=== PATIENT | male | born 1945 | race Caucasian/White ===

== ENCOUNTER 2016-06-25 10:35 | Day surgery (SDC) | payer MEDICARE ==
--- NOTE | 2016-06-24 12:17 | PCM.ANEPRE ---
Anesthesia Pre-Op Review Reason for Review: pre op EKG tachycardia- persistent through pre appts Anesthesia Recommendations: Proceed with Procedure Additional Comments 71 yo active male for cysto/lithalopaxy with no apparent cardiac hx other than tachycardia (90-120) noted on office visits. Pt hasn't followed up with PCP. Walked 4mi/day before his urinary symptoms. Phone conversation between patient and pre op RN reassuring; patient active with no symptoms. Ok to proceed with this particular low acuity case with usual DOS evaluation. Chart Reviewed by: Rufino Lazo MD, MD Jun 24, 2016 12:17
[~2016-06-25] VITALS: Ht 185.4 cm; Wt 39.0 kg
[2016-06-25] VITALS (8 sets, daily range): BP systolic 123–157; BP diastolic 77–95; PULSE 88–110; RESP 12–18; O2SAT 96–100
[~2016-06-25 10:35] MED LIST: ASPI-973 PO; Lactated Ringer's 1,000 ML IV SCH; Levofloxacin 500 mg/100 mL D5W IV SCH; TAMS0.4C98 PO
[2016-06-25] MEDS ORDERED: Phenylephrine/NS-PF 100 mCg/mL 5 mL Syringe IVPUSH ONE (10:36)
[2016-06-25] MEDS ORDERED: Ondansetron 2 mg/mL 2 mL Inj ONE (10:36)
[2016-06-25] MEDS ORDERED: Lidocaine PF 1% 30 mL Inj ONE (10:36)
[2016-06-25] MEDS ORDERED: Labetalol 5 mg/mL 20 mL Inj ONE (10:36)
[2016-06-25] MEDS ORDERED: MeTOProlol 1 mg/mL 5 mL Inj ONE (10:36)
[2016-06-25] MEDS ORDERED: fentaNYL-PF 50 mCg/mL 2 mL Inj ONE (10:36)
[2016-06-25] MEDS ORDERED: Esmolol 10,000 mCg/mL 10 mL Inj ONE (10:36)
[2016-06-25] MEDS ORDERED: Propofol 10,000 mCg/mL 20 mL Inj ONE (10:36)
[2016-06-25] MEDS ORDERED: HYDROmorphone 1 mg/mL Inj IVPUSH PRN (13:30)
[2016-06-25] MEDS ORDERED: Atropine 0.4 mg/mL Inj IVPUSH PRN (13:30)
[2016-06-25] MEDS ORDERED: EPHEDrine Sulfate 50 mg/mL Inj IVPUSH PRN (13:30)
[2016-06-25] MEDS ORDERED: Ondansetron 2 mg/mL 2 mL Inj IVPUSH PRN (13:30)
[2016-06-25] MEDS ORDERED: fentaNYL-PF 50 mCg/mL 2 mL Inj IVPUSH PRN (13:30)
[2016-06-25] MEDS ORDERED: Dexamethasone 4 mg/mL Inj IVPUSH PRN (13:30)
[2016-06-25] MEDS ORDERED: Lactated Ringer's 1,000 ML IV SCH (13:30)
[2016-06-25] MEDS ORDERED: MetoCLOpramide 5 mg/mL 2 mL Inj IVPUSH PRN (13:30)
[2016-06-25] MEDS ORDERED: Labetalol 5 mg/mL 4 mL Inj IV PRN (13:30)
[2016-06-25] MEDS ORDERED: hydrALAZINE 20 mg/mL Inj IVPUSH PRN (13:30)
[2016-06-25] MEDS ORDERED: Lactated Ringer's 500 ML IV PRN (13:30)
[2016-06-25] MEDS ORDERED: Phenylephrine 10,000 mCg/mL Inj IVPUSH PRN (13:30)
--- NOTE | 2016-06-25 13:30 | PCM.HPANE ---
Patient Data Date of Service: Jun 25, 2016 Surgeon Admitting Provider: Attending Provider:Lesly Denny MD Primary Care Physician:Christiano Stone Other Provider:George Patel Anesthesia Reason for Visit Bladder Stone Ht/WT & BMI Height (Feet): 6 Height (Inches): 1 Weight (Kilograms): 75 Body Mass Index Allergies Coded Allergies: No Known Allergies (Unverified Allergy, Unknown, 04/12/14) Past Anesthesia History Anesthesia History: Denies:: Abnormal Airway, Anesthesia Reactions, Difficult Intubation, Fam Anesthesia Reaction Diabetes History Hx Diabetes?: No MRSA MRSA: No Medications Hypertension Medication: No Home Meds Incl Beta Karyna: No Reported Medications Aspirin 81 Mg [id number] Mg PO DAILY Ref 0 06/23/16 Tamsulosin (Flomax)0.4 Mg Capsule0.4 Mg PO DAILY Ref 0 06/23/16 Discontinued Reported Medications [no home meds] No Conflict Check 04/13/14 Discontinued Scripts Tamsulosin (Flomax)0.4 Mg Capsule0.4 Mg PO BID #30 CAPSULE Prov:Minor Eisenberg 04/17/14 History History of ENT Problems?: Yes HEENT History: Positive for:: Cataracts (bilateral) Denies:: Abnormal Airway Difficult Intubation Dysphagia Hearing Problem Sinus Problem TMJ Teeth Condition: Broken Teeth Hx of Heart Problems?: Yes Cardiovascular History: Positive for:: Irregular Heartbeat (resting tachycardia, ) Denies:: AICD Abdominal Aortic Aneurism Cardiac Surgery Chest Pain Edema Heart Murmur Hypertension Rheumatic Fever Thrombophlebitis Valvular Heart Disease Hx of Respiratory Problem?: No Respiratory History: Denies:: Asthma (as child, not as an adult) COPD Dyspnea Emphysema Pneumonia Tuberculosis Use of C-PAP Machine Use of Inhalers / NEBS Hx Neurologic Problems?: No Neurological History: Denies:: CVA Headaches Multiple Sclerosis Parkinson's Disease Seizures TIA Other Neurological Pertinent: hx of LOC admission 2013 related to sepsis Hx of GI Problems?: No Gastrointestinal History: Denies:: Cirrhosis Gall Bladder Disease Gastroesphageal Reflux Gastrointestinal Bleeding Hepatitis Hiatal Hernia Liver Disease Rectal Bleeding Hx of Problems?: Yes Genitourinary History: Positive for:: Kidney Stones (bladder stone) Urinary Tract Infection Denies:: HX of Hemodialysis HX of Peritoneal Dialysis: No Other Pertinent History: bladder stone current admission problem- pt intermittent self caths Male Hx: Denies:: Prostate Problems Scrotal Mass Testicular Surgery Skin History: Denies:: History Skin Disorders? Pressure Ulcers Hx Musculoskeletal Problems?: No Musculoskeletal History: Denies:: Back Injury Fibromyalgia Joint Replacement Musculoskeletal Trauma Myasthenia Gravis Osteoarthritis Rheumatoid Arthritis Hx of Psycho/Social Problems?: No Psycho Social History: Denies:: Anxiety Hx Depression Hx Surgeries?: No (arm fracture repair, cataracts) Hx Any Other Health Problems?: Yes Other History: Positive for:: Hospitalization (LOC for sepsis) Denies:: Cancer Endocrine Disease Thyroid Disease History Blood Transfusions: Positive for:: Accept Blood Products? Denies:: Blood Transfuse Reaction Blood Transfusions Hx Diabetes: No Hx Alcohol Use: YesAlcoholic Drinks Per Day: 4 drinks yearlyHx Substance Use: No Smoking Status: Never Smoker Have You Smoked inLast 12 mo: No Stop/Bang S-Snoring: Do You Snore Loudly: No T-Tired: feel tired, fatigued: No P-Blood Pressure: treated: No B- Body Mass Index > 35 kg/m2: No A- Age over 50: Yes N- Neck Large Circumference: No G- Gender Male: Yes SUDHEER Risk Assessment: Low Risk, <3 Yes Risk Assessment Category Category 1A: Patient has history of documented sleep apnea, and HAS NOT received any narcotic, sedative or anesthesia administration during this stay. Category 1B: Patient has history of documented sleep apnea, and HAS received any narcotic , sedative or anesthesia administration during this stay Category 2: Patient has SUSPECTED Obstructive Sleep Apnea, and HAS received any narcotic , sedative or anesthesia administration during this stay. Category 3: Patient has SUSPECTED Obstructive Sleep Apnea and HAS NOT received narcotic, sedative or anesthesia administration during this stay. Category 4: Outpatient in Procedural Areas with known sleep apnea or who screen positive for High Risk via the STOP/BANG questionnaire. Exam Exam Vital Signs Vital Signs Date Time Temp Pulse Resp B/P Pulse Ox O2 Delivery O2 Flow Rate FiO2 06/25/16 11:26 36.8 110 18 134/89 98 Room Air General Appearance: Alert, Oriented X3, Cooperative HEENT/AIRWAY: MP 3, Neck Movement (Full), Mouth Opening (Wide) Lungs: Clear to Auscultation, Normal Air Movement Heart: Regular Rate/Rhythm, Normal S1, Normal S2 Plan Impression Patient chart reviewed, patient interviewed and anesthestic plan with risks, benefits, and alternatives discussed, and informed consent obtained. NPO Status: 2/ ASA Physical Status: ASA2 Mod Systemic Disease Anesthetic Plan: GA Bene/Risks/Altern/Consents: Yes HP Complete Prior to Induction: Yes Other persistently tachycardic. EKG with sinus tach Adolfo Greene MD Jun 25, 2016 12:26
[2016-06-25] MEDS ORDERED: Belladonna Alk-Opium 60 mg Rectal Suppository RECTAL ONE ×2 (14:09→16:06)
[2016-06-25] MEDS ORDERED: Lactated Ringer's 1,000 ML IV ONE (16:00)
[2016-06-25] MEDS ORDERED: HYDROcodone-APAP 5-325 mg Tablet PO PRN (16:20)
[2016-06-25] MEDS ORDERED: Phenazopyridine 97.5 mg Tablet PO PRN (16:20)
[2016-06-25] MEDS ORDERED: Ondansetron 8 mg ODT Tablet PO PRN (16:20)
--- NOTE | 2016-06-25 16:22 | PCM.ANEP1 ---
Post Anesthesia Phase 1 PACU Phase 1 Assessment Date of Service: Jun 25, 2016 Vital Signs BP 154/95, HR 95, O2 100% 10L, RR 14, T 36.3 Vital Signs Date Time Temp Pulse Resp B/P Pulse Ox O2 Delivery O2 Flow Rate FiO2 06/25/16 11:26 36.8 110 18 134/89 98 Room Air Anesthetic Administered: GA Level of Alertness: Awake, talking DURHAM's with Equal Strength: Yes Pain: No Nausea or Vomiting: No Oxygen Delivery: Simple Mask Lungs: Normal Air Movement Adolfo Greene MD Jun 25, 2016 16:22
--- NOTE | 2016-06-25 16:26 | PCM.ANEP2 ---
Post Anesthesia Evaluation ASA/CMS Post Anesthesia Date of Service: Jun 25, 2016 VS in Patient's Normal Range?: Yes Resp Stable; Airway Patent?: Yes CV Function & Hydration Stable: Yes (very labile intraop. Metoprolo/esmolol/ labetalol with good control) Mental Status Recovered?: Yes Pain control Satisfactory?: Yes N/V Control Satisfactory?: Yes Adolfo Greene MD Jun 25, 2016 16:26
--- NOTE | 2016-06-27 00:16 | OP ---
[address] [address] OPERATIVE REPORT PATIENT: MARCELA SOLIS : 1945 MR#: [id number] ADMIT: 06/25/2016 JOB ID: [id number] DATE OF SURGERY: 06/25/2016 PROCEDURE NAME: 1 Transurethral resection of the median lobe of prostate and also 2 large cystolitholapaxy of a stone 4.2 cm in greatest diameter radiographically. SURGEON: Lesly Denny MD. ANESTHESIA: General. PREOPERATIVE DIAGNOSIS(ES): 1. Chronic urinary retention requiring intermittent catheterization. 2. Gross hematuria. 3. Large bladder calculus. 4. Benign prostatic hypertrophy. POSTOPERATIVE DIAGNOSIS(ES): 1. Chronic urinary retention requiring intermittent catheterization. 2. Gross hematuria. 3. Large bladder calculus. 4. Benign prostatic hypertrophy. INDICATIONS: Patient is a 71-year-old gentleman with a long history requiring intermittent catheterization for neurogenic bladder following over distention potentially transitioning from chronic indwelling catheter to intermittent catheterization some one year prior presenting with bladder irritation and found to have a large bladder calculus over 4 cm in greatest dimension on plain x-ray. Set up for cystolitholapaxy. Risks and benefits of the procedure were discussed, treatment of the stone is necessary as he is quite symptomatic from it. PROCEDURE IN DETAIL: After appropriate informed consent was obtained, patient was brought to the operating room. He received IV antibiotics prior to onset of the procedure. SCDs were placed. Adequate general anesthesia induced. He was carefully placed in dorsal lithotomy position. All pressure points were carefully padded. Cleaned, prepped, and draped in the usual sterile fashion. Rigid scope was introduced in the patient's bladder with a 25-Gabonese outer sheath. Was noted to have a large median lobe and a very large bladder stone posterior and also inferior to this median lobe. Initially, attempts were made with the large lithotrite stone glass crusher to crush the stone; however, the size of the stone precluded use of this. Thus, we withdrew the said scope and used 1000 micron laser fiber to address the stone. This was very large and actually quite hard. It took well over 20-25 minutes to begin to break the stone up and, in the course of breaking up the stone, torquing of the scope on the prostate led to enough prostate bleeding that we ultimately needed to get the resectoscope out and a cutting loop was used to take down the median portion of the median lobe in order to both access the stone more fully and then also to cauterize and prevent bleeding from stone manipulation and torquing of the scope on this large median lobe. Throughout the course of the case, we went back and forth between the resectoscope and the 25-Gabonese sheath with the mechanical stone glass crusher once we had gotten the size of the stone down enough with the laser fiber as manipulation beyond a point kept stirring up bleeding once again. Care was taken to try to avoid bilateral ureteral orifices and stay in the median portion of the bladder. Patient's bladder was known from before to be heavily trabeculated with a large median lobe with multiple diverticula. We used Ellik extensively to get out stone fragments and this was made also difficult by the friability of the patient's bladder wall after stone treatment and the existence of cellules and diverticula as well as just bladder trabeculation. By the end of the case, hemostasis was really quite good. The median lobe of the prostate had been largely taken down. The vast majority of the fragments larger than 1-2 mm were irrigated out and we out the prostate specimen to be sent for permanent pathology. Bladder stone itself was not sent. Hemostasis was good. We placed a 22-Gabonese Little catheter, irrigated this out further with a cath tip syringe. Urine remained fairly clear. It was left to gravity drainage. He was given a B and O suppository for postop comfort, awakened and taken in stable condition to the postanesthesia care unit. KARIN
--- NOTE | 2016-06-29 10:04 | PATH ---
SURGICAL PATHOLOGY Attending Physician:Lesly Denny MD CASE STATUS: Signed Out PATIENT NAME: MARCELA SOLIS PID: [id number] : 1945 DATE COLLECTED:06/26/2016 00:00 SPECIMEN: Prostate, Chips CLINICAL HISTORY: MEDIAL LOBE PROSTATE CHIPS/BLADDER NECK, BPH, HEMATURIA, INCIDENTAL BLADDER STONE FRAGMENTS 1). PROSTATE CHIPS/BLADDER NECK FINAL DIAGNOSIS: 1.SPECIMEN DESIGNATED MEDIAL LOBE PROSTATE CHIPS/BLADDER NECK: CHRONIC INFLAMMATION AND EXTENSIVE MICROCALCIFICATION INVOLVING SMOOTH MUSCLE AND FIBROUS TISSUE WITH NO PROSTATE GLANDS IDENTIFIED. ICD10 CODE N40.1 GROSS DESCRIPTION: Received in formalin, labeled with the patient' s name and "prostate-bladder neck", are multiple fragments of dangelo tissue measuring 1.0 x 1.0 x 0.5 cm in aggregate. All fragments are totally submitted in one cassette. ([id number]) MICRO DESCRIPTION: See diagnosis. ICD-9 CODES: CPT CODES: 1: 45917 Electronically Signed Out Mazin Moreira MD [facility] [address], [place] [address] Technical component performed at [facility], [facility] [address], [place], [address]
== END 2016-06-25 23:59 | disposition home or self-care (01) ==
LOC: SAS 10:35
PROVIDERS: ATTEND Urology
DX: N21.0 Calculus in bladder (principal); R33.9 Retention of urine, unspecified; R31.0 Gross hematuria; N40.1 Benign prostatic hyperplasia with lower urinary tract symptoms; N31.9 Neuromuscular dysfunction of bladder, unspecified; J45.909 Unspecified asthma, uncomplicated; Z79.82 Long term (current) use of aspirin
CPT/HCPCS: 52318; 52601; J2175; J2250; J2370; J2405; J3010; J7120